=== PATIENT | female | born 1975 ===

== ENCOUNTER 2019-11-14 05:40 | Day surgery (SDC) | payer OTHER ==
[2019-11-14] MEDS ORDERED: NEXIUM 24HR20 MG PO (08:30)
== END 2019-11-14 09:40 | disposition home or self-care (01) ==
LOC: AMB-ENDOS 05:40
DX: D13.1 Benign neoplasm of stomach (principal); K44.9 Diaphragmatic hernia without obstruction or gangrene; K29.30 Chronic superficial gastritis without bleeding